=== PATIENT | male | born 1945 | race Caucasian/White ===

== ENCOUNTER 2025-01-29 11:17 | Inpatient (IN) | payer MEDICARE, OTHER ==
[~2025-01-29] VITALS: Ht 172.7 cm; Wt 63.2 kg
[2025-01-29 11:30] VITALS: PULSE 72; RESP 18; O2SAT 98
--- NOTE | 2025-01-29 11:39 | ED.PDOC ---
History of Present Illness HPI Comments 79-year-old male BIBA with prior medical history of OR, hypertension, high lipids, skin cancer, seizures (not on meds): Surgical history of skin cancer surgery in the chief complaint of a seizure. EMS report that the patient had a one episode seizure which lasted 1 minute and was tonic and clonic. Patient was sitting in playing a game in his computer when the seizure occurred. When EMS arrived on scene the patient was sitting on the floor postictal. Patient's stated that the patient's last seizure was years ago. On scene patient blood sugar 140. Social history of tobacco use. Family history of heart disease. Denies any other symptoms at this time. Denies chills, fever, N/V/D, SOB, CP. No other associated symptoms, modifiers, recent injuries or sick contacts present at this time. Chief Complaint: Seizure Time Seen by MD: 11:30 Primary Care Provider: GOODK Reviewed Notes: Nurses Notes, Medications, Allergies Allergies: Coded Allergies: NO KNOWN ALLERGIES (Unverified , 05/14/15) Information Source: Patient, Emergency Med Personnel Mode of Arrival: EMS Severity: Moderate Timing: Minutes Duration: Since onset, Minutes Prehospital treatment: None Past Medical History PAST MEDICAL HISTORY: Cancer (Skin cancer), High Lipids, HTN, OR, Seizures (Currently not taking medications) Surgical History: Denies all surgeries Family History Family History: Reviewed,noncontributory to illness, Unknown Social History Smoker: Non-Smoker Alcohol: Denies ETOH Use Drugs: Denies Drug Use Lives In: Home Constitutional: denies: chills, diaphoresis, fatigue, fever, malaise, sweats, weakness, others EENTM: denies: blurred vision, double vision, ear bleeding, ear discharge, ear drainage, ear pain, ear ringing, eye pain, eye redness, hearing loss, mouth pain, mouth swelling, nasal discharge, nose bleeding, nose congestion, nose pain, photophobia, tearing, throat pain, throat swelling, voice changes, others Respiratory: denies: cough, hemoptysis, orthopnea, SOB at rest, shortness of breath, SOB with excertion, stridor, wheezing, others Cardiovascular: denies: chest pain, dizzy spells, diaphoresis, Dyspnea on exertion, edema, irregular heart beat, left arm pain, lightheadedness, palpitations, PND, syncope, others Gastrointestinal: denies: abdomen distended, abdominal pain, blood streaked bowels, constipated, diarrhea, dysphagia, difficulty swallowing, hematemesis, melena, nausea, poor appetite, poor fluid intake, rectal bleeding, rectal pain, vomiting, others Genitourinary: denies: burning, dysuria, flank pain, frequency, hematuria, incontinence, penile discharge, penile sore, pain, testicle pain, testicle swelling, urgency, others Neurological: reports: seizure; denies: dizziness, fainting, headache, left sided numbness, left sided weakness, numbness, paresthesia, pre-existing deficit, right sided numbness, right sided weakness, speech problems, tingling, tremors, weakness, others Musculoskeletal: denies: back pain, gout, joint pain, joint swelling, muscle pain, muscle stiffness, neck pain, others Integumetry: denies: bruises, change in color, change in hair/nails, dryness, laceration, lesions, lumps, rash, wounds, others Allergic/Immunocompromised: denies: Difficulty Healing, Frequent Infections, Hives, Itching, others Hematologic/Lymphatic: denies: anemia, blood clots, easy bleeding, easy bruising, swollen glands, others Endocrine: denies: excessive hunger, excessive sweating, excessive thirst, excessive urination, flushing, intolerance to cold, intolerance to heat, unexplained weight gain, unexplained weight loss, others Psychiatric: denies: anxiety, bipolar disorder, depression, hopeless, panic disorder, schizophrenia, sleepless, suicidal, others All Other Systems: Reviewed and Negative Physical Exam General Appearance: Moderate Distress HEENT: Normal ENT Inspection, Pharynx Normal, TMs Normal Neck: Full Range of Motion, Non-Tender, Normal, Normal Inspection Respiratory: Chest Non-Tender, Lungs Clear, No Accessory Muscle Use, No Respiratory Distress, Normal Breath Sounds Cardiovascular: No Edema, No JVD, No Murmur, No Gallop, Normal Peripheral Pulses, Regular Rate/Rhythm Breast Exam: Deferred Gastrointestinal: No Organomegaly, Non Tender, No Pulsatile Mass, Normal Bowel Sounds, Soft Genitalia: Deferred Pelvic: Deferred Rectal: Deferred Extremities: No calf tenderness, Normal capillary refill, Normal inspection, Normal range of motion, Non-tender, No pedal edema Musculoskeletal : Apperance: Normal Neurologic: microstrategy architect II-XII nml as Tested, Motor Weakness, Normal Affect, Normal Mood, No Sensory Deficits Cerebellar Function: Normal Reflexes: Normal Skin: Dry, Normal Color, Warm Lymphatic: No Adenopathy Was a procedure done? Was a procedure done?: No Differential Dx Considerations may include: Breakthrough seizure, generalized weakness, electrolyte imbalance X-Ray, Labs, Meds, VS Vital Signs Date Time Temp Pulse Resp B/P (MAP) Pulse Ox O2 Delivery O2 Flow Rate FiO2 01/29/25 11:26 98.1 70 16 146/72 97 98.1 Lab Test 01/29/25 12:56 Range/Units White Blood Count 7.3 4.4-10.8 10^3/uL Red Blood Count 4.20 L 4.5-5.90 10^6/uL Hemoglobin 12.6 L 13.5-17.5 g/dL Hematocrit 37.6 L 41.0-53.0 % Mean Corpuscular Volume 89.6 80.0-100.0 fL Mean Corpuscular Hemoglobin 29.9 28.0-32.0 pg Mean Corpuscular Hemoglobin Concent 33.4 32.0-36.0 g/dL Red Cell Distribution Width 15.2 H 11.8-14.3 % Platelet Count 241 140-450 10^3/uL Mean Platelet Volume 7.6 6.9-10.8 fL Neutrophils (%) (Auto) 78.2 37.0-80.0 % Lymphocytes (%) (Auto) 9.7 L 10.0-50.0 % Monocytes (%) (Auto) 10.0 0.0-12.0 % Eosinophils (%) (Auto) 1.6 0.0-7.0 % Basophils (%) (Auto) 0.5 0.0-2.0 % Neutrophils # (Auto) 5.7 1.6-8.6 10 ^3/uL Lymphocytes # (Auto) 0.7 0.4-5.4 10 ^3/uL Monocytes # (Auto) 0.7 0-1.3 10 ^3/uL Eosinophils # (Auto) 0.1 0-0.8 10 ^3/uL Basophils # (Auto) 0 0-0.2 10 ^3/uL Nucleated Red Blood Cells 0.0 % Sodium Level 138 136-145 mmol/L Potassium Level 4.4 3.5-5.1 mmol/L Chloride Level 106 98-107 mmol/L Carbon Dioxide Level 26 20-31 mmol/L Anion Gap 6 5-15 Blood Urea Nitrogen 16 9-23 mg/dL Creatinine 1.45 H 0.700-1.30 mg/dL Glomerular Filtration Rate Calc 49 >90 mL/min BUN/Creatinine Ratio 11.0 10.0-20.0 Serum Glucose 112 H 74-106 mg/dL Calcium Level 8.4 L 8.7-10.4 mg/dL Current Medications Medications (Trade) Dose Ordered Sig/Dahlia Route Start Time Stop Time Status Last Admin Levetiracetam 100 ml @ 400 mls/hr ONCE ONCE IV 01/29/25 11:30 01/29/25 11:44 DC 01/29/25 11:59 The patient's CBC is within normal limits The chemistry panel shows a bilirubin of 1.45 The patient was given Keppra 1 g IV piggyback The CAT scan of the head shows: IMPRESSION: 1. Area of hypoattenuation of the right parietal lobe and correlate for underlying acute infection. 2. Additional area loss of lopez-white differentiation of the left occipital lobe. At this time we will get a neurology consult The patient is being admitted to the hospitalist. At this time, the patient will be admitted secondary to the fact that he is currently not at his baseline. Images Reviewed?: Images reviewed and evaluated by me Time of 1ST Reevaluation: 12:00 Reevaluation 1ST: Unchanged Patient Education/Counseling: Diagnosis, Treatment, Prognosis Family Education/Counseling: No Family Present SEPSIS Sepsis Screen Date sepsis recognized/suspect: Jan 29, 2025 Time Sepsis recognized/suspect: 1127 Recent Procedure: No On Antibiotic Therapy: No Respiratory Rate >20: No Heart Rate >90: No Temp<36 C (96.8 F) or >38.3 C: No SBP <90 or MAP <65 mmHG: No New Acute Mental Status Change: No Is the patient on CPAP, BIPAP,: No Physician Orders Pulse Oximetry (01/29/25 11:30) Blood Pressure (01/29/25 11:30) Heplock Iv (01/29/25 11:30) Seizure Precautions (01/29/25 11:30) Planisher (01/29/25 11:30) Electrocardigram (01/29/25 11:30) Head Without Contrast (01/29/25 11:30) Vital Signs Date Time Temp Pulse Resp B/P (MAP) Pulse Ox O2 Delivery O2 Flow Rate FiO2 01/29/25 11:26 98.1 70 16 146/72 97 98.1 Laboratory Tests Test 01/29/25 12:56 White Blood Count 7.3 10^3/uL (4.4-10.8) Medications Medications Dose Ordered Sig/Dahlia Route Start Time Stop Time Status Last Admin Dose Admin Levetiracetam 100 ml @ 400 mls/hr ONCE ONCE IV 01/29/25 11:30 01/29/25 11:44 DC 01/29/25 11:59 Departure 1 Departure Time of Disposition: 14:03 Impression: Primary Impression: Breakthrough seizure Disposition: ADMITTED INPATIENT Admit to: Tele Condition: Fair Critical Care Note Critical Care Time?: No Stability Stability form required: Yes Unstable for transfer: Telemetry monitoring (Telemetry monitoring required), ED Physician Assesment (Clinical assesment) Heart Score Heart Score: Heart Score Response (Comments) Value History N/A 0 EKG N/A 0 Age N/A 0 Risk Factors N/A 0 Troponin N/A 0 Total 0 I personally scribed for NATALI DOMINGUEZ MD ([email or web address]) on 01/29/25 at 11:39. Electronically submitted by Robin Michael ([email or web address]). NATALI DOMINGUEZ MD Jan 29, 2025 11:39
[2025-01-29] MEDS: levETIRAcetam 1000 mg/100ml 100 ML IV ONE (11:59)
--- NOTE | 2025-01-29 12:35 | DVH ---
EXAM: CT HEAD WITHOUT CONTRAST INDICATION: seizure TECHNIQUE: CT images of the head were obtained without administration of IV contrast. CT scans at this facility use dose modulation, iterative reconstruction, and/or weight based dosing when appropriate to reduce radiation dose to as low as reasonably achievable. COMPARISON: None FINDINGS: PARENCHYMA: No acute hemorrhage. There is no mass effect, midline shift, or herniation. Area hypoattenuation of the right parietal lobe and correlate for underlying acute infection. Additional area loss of lopez-white differentiation of the left occipital lobe. Mild scattered hypoattenuation along the p eriventricular, centrum semiovale, and deep white matter tracts, which are nonspecific however statistically most likely represent chronic microvascular ischemic change. VENTRICLES: No hydrocephalus. EXTRA-AXIAL SPACES: No extra-axial fluid collections. OTHER: The bony structures are intact. Visualized portions of the paranasal sinuses and mastoid air cells are clear. IMPRESSION: 1. Area of hypoattenuation of the right parietal lobe and correlate for underlying acute infection. 2. Additional area loss of lopez-white differentiation of the left occipital lobe.
[2025-01-29 13:44] LABS: Chloride 106 mmol/L (98-107); Potassium 4.4 mmol/L (3.5-5.1); Sodium 138 mmol/L (136-145)
[2025-01-29 13:45] LABS: Anion Gap 6 (5-15); Carbon Dioxide 26 mmol/L (20-31)
[2025-01-29 13:47] LABS: Hematocrit 37.6 % (41.0-53.0); Hemoglobin 12.6 g/dL (13.5-17.5); Mean Corpuscular Hemoglobin 29.9 pg (28.0-32.0); Mean Corpuscular Volume 89.6 fL (80.0-100.0); Nucleated Red Blood Cells % 0.0 %
[2025-01-29 13:50] LABS: BUN/Creatinine Ratio 11.0 (10.0-20.0); Blood Urea Nitrogen 16 mg/dL (9-23)
[2025-01-29 13:55] LABS: Calcium 8.4 mg/dL (8.7-10.4); Glucose 112 mg/dL (74-106)
[2025-01-29] MEDS ORDERED: ACETAMINOPHEN 325 MG TAB PO PRN (19:45)
[2025-01-29] MEDS ORDERED: ONDANSETRON HCL 4 MG/2 ML VIAL IV PRN (19:45)
[2025-01-29 21:09] VITALS: O2SAT 93
[2025-01-29 21:25] VITALS: BP 114/64; PULSE 57; RESP 18; TEMP 97.7; O2SAT 95
[2025-01-29] MEDS ORDERED: LORazepam 2MG/ML-1ML VIAL IV PRN ×3 (21:45→23:45)
--- NOTE | 2025-01-29 21:47 | DVHHP2 ---
History of Present Illness Reason for Visit: Seizure History of Present Illness 79-year-old male presents for evaluation of seizure evaluation. Patient was in his computer playing games when his noticed patient falling to the ground and began shaking for approximately 1 minute. When EMS arrived patient was found on the floor postictal. Currently he is alert and oriented. Denies headache or blurred vision. There is no unilateral weakness. Denies any cardiac or respiratory symptoms. Past Medical History Dyslipidemia, hypertension, mi, skin cancer Past Surgical History Skin surgery Family History Noncontributory Smoke: No ALCOHOL: none Drugs: None Lives: with Family Review of Systems Review of Systems Review of systems are currently negative otherwise addressed in HPI. Allergies: Coded Allergies: NO KNOWN ALLERGIES (Unverified , 05/14/15) Medications Current Medications Medications Dose Ordered Sig/Dahlia Route Start Time Stop Time Status Last Admin Dose Admin Levetiracetam 500 mg BID PO 01/29/25 22:00 Ondansetron HCl 4 mg Q4HP PRN IV 01/29/25 19:45 Acetaminophen 650 mg Q6HP PRN PO 01/29/25 19:45 Exam Vital Signs Vital Signs Date Time Temp Pulse Resp B/P (MAP) Pulse Ox O2 Delivery O2 Flow Rate FiO2 01/29/25 21:09 93 Nasal Cannula* 2 28 01/29/25 20:00 98.3 66 13 131/53 (79) 98.3 Exam Gen: 79-year-old male in no apparent distress Skin: Warm, dry, normal color and texture, no rash. HEENT: Normocephalic atraumatic, mucous membranes moist and pink. Neck: Cervical and supraclavicular nodes normal without enlargement, trachea is midline, thyroid gland is normal without masses. Pulmonary: Clear to auscultation and percussion bilaterally. Cardiac: Regular rate and rhythm. No murmur Abdomen: Soft, nontender, nondistended, bowel sounds present all 4 quadrants, no guarding, no rigidity, no organomegaly. Extremities: No cyanosis, clubbing, no edema Neuro: Cranial nerves II through XII grossly intact, normal affect and speech, no focal motor deficits. Labs/Xrays ORDERING PHYSICIAN: NATALI DOMINGUEZ MD PROCEDURE(s): HWOCT - HEAD WITHOUT CONTRAST REASON: seizure ORDER NUMBER(s): [id number], ACCESSION NUMBER(s): [id number] EXAM: CT HEAD WITHOUT CONTRAST INDICATION: seizure TECHNIQUE: CT images of the head were obtained without administration of IV contrast. CT scans at this facility use dose modulation, iterative reconstruction, and/or weight based dosing when appropriate to reduce radiation dose to as low as reasonably achievable. COMPARISON: None FINDINGS: PARENCHYMA: No acute hemorrhage. There is no mass effect, midline shift, or herniation. Area hypoattenuation of the right parietal lobe and correlate for underlying acute infection. Additional area loss of lopez-white differentiation of the left occipital lobe. Mild scattered hypoattenuation along the periventricular, centrum semiovale, and deep white matter tracts, which are nonspecific however statistically most likely represent chronic microvascular ischemic change. VENTRICLES: No hydrocephalus. EXTRA-AXIAL SPACES: No extra-axial fluid collections. OTHER: The bony structures are intact. Visualized portions of the paranasal sinuses and mastoid air cells are clear. IMPRESSION: 1. Area of hypoattenuation of the right parietal lobe and correlate for underlying acute infection. 2. Additional area loss of lopez-white differentiation of the left occipital lobe. Labs Test 01/29/25 12:56 Range/Units White Blood Count 7.3 4.4-10.8 10^3/uL Red Blood Count 4.20 L 4.5-5.90 10^6/uL Hemoglobin 12.6 L 13.5-17.5 g/dL Hematocrit 37.6 L 41.0-53.0 % Mean Corpuscular Volume 89.6 80.0-100.0 fL Mean Corpuscular Hemoglobin 29.9 28.0-32.0 pg Mean Corpuscular Hemoglobin Concent 33.4 32.0-36.0 g/dL Red Cell Distribution Width 15.2 H 11.8-14.3 % Platelet Count 241 140-450 10^3/uL Mean Platelet Volume 7.6 6.9-10.8 fL Neutrophils (%) (Auto) 78.2 37.0-80.0 % Lymphocytes (%) (Auto) 9.7 L 10.0-50.0 % Monocytes (%) (Auto) 10.0 0.0-12.0 % Eosinophils (%) (Auto) 1.6 0.0-7.0 % Basophils (%) (Auto) 0.5 0.0-2.0 % Neutrophils # (Auto) 5.7 1.6-8.6 10 ^3/uL Lymphocytes # (Auto) 0.7 0.4-5.4 10 ^3/uL Monocytes # (Auto) 0.7 0-1.3 10 ^3/uL Eosinophils # (Auto) 0.1 0-0.8 10 ^3/uL Basophils # (Auto) 0 0-0.2 10 ^3/uL Nucleated Red Blood Cells 0.0 % Sodium Level 138 136-145 mmol/L Potassium Level 4.4 3.5-5.1 mmol/L Chloride Level 106 98-107 mmol/L Carbon Dioxide Level 26 20-31 mmol/L Anion Gap 6 5-15 Blood Urea Nitrogen 16 9-23 mg/dL Creatinine 1.45 H 0.700-1.30 mg/dL Glomerular Filtration Rate Calc 49 >90 mL/min BUN/Creatinine Ratio 11.0 10.0-20.0 Serum Glucose 112 H 74-106 mg/dL Calcium Level 8.4 L 8.7-10.4 mg/dL SEPSIS Sepsis Screen Date sepsis recognized/suspect: Jan 29, 2025 Time Sepsis recognized/suspect: 1129 Recent Procedure: No On Antibiotic Therapy: No Respiratory Rate >20: No Heart Rate >90: No Temp<36 C (96.8 F) or >38.3 C: No SBP <90 or MAP <65 mmHG: No New Acute Mental Status Change: No Is the patient on CPAP, BIPAP,: No Physician Orders Levetiracetam Tablet (Keppra Tablet) (01/29/25 22:00) Seizure Precautions In Place (01/29/25 19:33) * Neurology Consult (01/29/25 19:33) Basic Metabolic Panel (01/30/25 04:00) Ondansetron Hcl (Zofran) (01/29/25 19:45) Cardiac Diet-2gna,Lofat,Lochol (01/30/25 Breakfast) Condition: Stable (01/29/25 19:33) Acetaminophen Tablet (Tylenol Tablet) (01/29/25 19:45) Bedrest With Bathroom Privileg (01/29/25 19:33) Admit (01/29/25 19:57) Amlodipine Tablet (Norvasc Tablet) (01/30/25 10:00) Aspirin Tablet (01/30/25 10:00) Atorvastatin (Lipitor) (01/29/25 22:00) Lorazepam 2mg/Ml Inj (Ativan Inj) (01/29/25 21:45) Vital Signs Date Time Temp Pulse Resp B/P (MAP) Pulse Ox O2 Delivery O2 Flow Rate FiO2 01/29/25 21:09 93 Nasal Cannula* 2 28 01/29/25 20:00 98.3 66 13 131/53 (79) 94 98.3 01/29/25 17:00 98.1 59 14 137/58 (84) 99 98.1 01/29/25 15:00 76 15 121/63 (82) 97 Laboratory Tests Test 01/29/25 12:56 White Blood Count 7.3 10^3/uL (4.4-10.8) Medications Medications Dose Ordered Sig/Dahlia Route Start Time Stop Time Status Last Admin Dose Admin Levetiracetam 100 ml @ 400 mls/hr ONCE ONCE IV 01/29/25 11:30 01/29/25 11:44 DC 01/29/25 11:59 400 MLS/HR Assessment/Plan Assessment/Plan Assessment Seizure activity, new onset Hypertension Chronic kidney disease Plan Admit the patient to [facility] to the hospitalist Nephrology consultation Start Keppra b.i.d. MRI of the brain pending Seizure precautions in place Resume home medications Continue treatment per orders. Plan discussed with: Patient My Orders Orders - RONNELL FROST AGACNCiro Procedure Category Date Status Time Levetiracetam Tablet PHA 01/29/25 In Process (Keppra Tablet) 22:00 Seizure Precautions RITA 01/29/[address] 19:33 * Neurology Consult CONS 01/29/25 Transmitted 19:33 Basic Metabolic Panel LAB 01/30/25 Verified 04:00 Ondansetron Hcl PHA 01/29/25 In Process (Zofran) 19:45 Cardiac DIET 01/30/25 Transmitted Diet-2gna,Lofat,Lochol Breakfast Condition: Stable RITA 01/29/25 In Process 19:33 Acetaminophen Tablet PHA 01/29/25 In Process (Tylenol Tablet) 19:45 Bedrest With Bathroom RITA 01/29/25 In Process Privileg 19:33 Admit ADMIT 01/29/25 Transmitted 19:57 Amlodipine Tablet PHA 01/30/25 Transmitted (Norvasc Tablet) 10:00 Aspirin Tablet PHA 01/30/25 Transmitted 10:00 Atorvastatin (Lipitor) PHA 01/29/25 Transmitted 22:00 Lorazepam 2mg/Ml Inj PHA 01/29/25 Transmitted (Ativan Inj) 21:45 Date of Service: Jan 29, 2025 Billing Provider: RONNELL FROST Common Visit Codes: [id number] INP/OBS CARE (HIGH) RONNELL FROST Jan 29, 2025 21:47
[2025-01-29] MEDS: levETIRAcetam 500 MG TAB PO SCH (22:03)
[2025-01-29] MEDS: ATORVASTATIN 20 MG TAB PO SCH (22:06)
--- NOTE | 2025-01-29 23:42 | DVHINCON2 ---
Date of service: Jan 29, 2025 Referring Physician Jhon Reason for Consultation Seizure History of Present Illness Mr. Malone is a 79 years old right-handed gentleman with a history of hypertension, dyslipidemia, skin cancer, he was brought to the [facility] on 01/29/25 with a chief complaint of seizure activity. At that time, he is alert and oriented x3, the history is obtained from him and his He remembers sitting and playing video games, but next memory was waking up with and EMS people around him, and told him he had seizure He relates that she heard a noise and found him shaking with blood coming off the mouth, the event was about 1 minute and the patient is confused afterwards. The patient does not remember his relates he had one similar but less intense event 2-3 years ago, the patient was seen in the [facility] but did not remember what was done, and how he was treated. did not remember seizure medication previously He has no symptoms of olfactory/gustatory hallucination He denies a history of traumatic brain injury, intracranial infection, family history seizure disorder The case has been discussed with Jhon Home medication: aspirin, trazodone, carvedilol, Lipitor, losartan, HCTZ, bupropion WBC/HB/PLT/MCV, 01/29/2025: 7.3/12.6/241/89.6 BUN/CR, 01/29/2025: 16/1.45 GFR, 01/29/2025: 49 CT head, 01/29/2025: 1. Area of hypoattenuation of the right parietal lobe and correlate for underlying acute infection. 2. Additional area loss of lopez-white differentiation of the left occipital lobe. Past Medical History Hypertension, dyslipidemia, coronary artery disease, skin cancer, no history of traumatic brain injury, intracranial infection or strokes Past Surgical History Multiple skin cancer resection, CABG Family History: Patient reports no known family medical history. Family History Hypertension, heart attack Social History He smokes, he used to drink alcohol heavily, but no history of drug abuse Allergies: Coded Allergies: NO KNOWN ALLERGIES (Unverified , 05/14/15) Home Meds Unable to Obtain Active Prescriptions or Reported Meds Current Medications Current Medications Medications (Trade) Dose Ordered Sig/Dahlia Route PRN Reason Start Time Stop Time Status Last Admin Levetiracetam (Keppra Tablet) 500 mg BID PO 01/29/25 22:00 01/29/25 22:03 Ondansetron HCl (Zofran) 4 mg Q4HP PRN IV NAUSEA / VOMITING 01/29/25 19:45 Acetaminophen (Tylenol Tablet) 650 mg Q6HP PRN PO PAIN SCALE 1-3 OR TEMP>100.4 01/29/25 19:45 Amlodipine Besylate (Norvasc Tablet) 5 mg DAILY PO 01/30/25 10:00 Aspirin 81 mg DAILY PO 01/30/25 10:00 Atorvastatin Calcium (Lipitor) 10 mg HS PO 01/29/25 22:00 01/29/25 22:06 Lorazepam (Ativan Inj) 1 mg Q5MINP PRN IV SEIZURES 01/29/25 21:45 Review of Systems As above, the other systems are negative Vital Signs Vital Signs Date Time Temp Pulse Resp B/P (MAP) Pulse Ox O2 Delivery O2 Flow Rate FiO2 01/29/25 21:25 97.7 57 18 114/64 (81) 95 97.7 01/29/25 21:09 Nasal Cannula* 2 28 Physical Exam GENERAL EXAM: General: the patient is well developed and nourished. No acute distress. HEENT: Normocephalic, neck is supple, no carotid bruits. No mass. I saw dried blood in the lower lip RESPIRATORY: Normal respiratory effort with symmetrical lung expansion. Lungs clear to auscultation. CARDIOVASCULAR: Regular rate and rhythm with no murmurs. S1, S2. ABDOMEN: Soft, nontender, normal bowel sound NEUROLOGICAL: MENTAL STATUS: Awake and alert. Oriented to person, place, time and general circumstances. Able to give personal history. SPEECH, LANGUAGE, HIGHER CORTICAL FUNCTION: no aphasia or dysathria. CRANIAL NERVES: #2: Intact visual hernandez to confrontation. The optic discs were sharp. #3,4,6: Pupils are equal, round and reactive. EOMs full and conjugate. #5: Facial sensation intact in all three divisions bilaterally. Mandibular strength intact. #7: Facial muscles symmetrical and strength intact. #8: Hearing grossly normal to voice. #9,10: Uvula and soft palate rise in the midline. Swallow and voice are normal. #11: Trapezius and sternomastoid strength intact bilaterally. #12: Tongue midline. No fasciculations or atrophy. SENSATION: Sensation to touch and pinprick is normal. MOTOR: Normal tone in the upper and lower extremity. Normal muscle bulk. No fasciculations. No abnormal movements or posturing. Muscle strength of the major groups in the upper extremities is 5/5. Muscle strength of the major groups in the lower extremities is 5/5. REFLEXES: Deep tendon reflexes are symmetrical. No pathological reflexes. CEREBELLAR/COORDINATION: Finger to nose is normal bilaterally. GAIT/STATION: deferred. Labs/Diagnostic Data Labs Test 01/29/25 12:56 Range/Units White Blood Count 7.3 4.4-10.8 10^3/uL Red Blood Count 4.20 L 4.5-5.90 10^6/uL Hemoglobin 12.6 L 13.5-17.5 g/dL Hematocrit 37.6 L 41.0-53.0 % Mean Corpuscular Volume 89.6 80.0-100.0 fL Mean Corpuscular Hemoglobin 29.9 28.0-32.0 pg Mean Corpuscular Hemoglobin Concent 33.4 32.0-36.0 g/dL Red Cell Distribution Width 15.2 H 11.8-14.3 % Platelet Count 241 140-450 10^3/uL Mean Platelet Volume 7.6 6.9-10.8 fL Neutrophils (%) (Auto) 78.2 37.0-80.0 % Lymphocytes (%) (Auto) 9.7 L 10.0-50.0 % Monocytes (%) (Auto) 10.0 0.0-12.0 % Eosinophils (%) (Auto) 1.6 0.0-7.0 % Basophils (%) (Auto) 0.5 0.0-2.0 % Neutrophils # (Auto) 5.7 1.6-8.6 10 ^3/uL Lymphocytes # (Auto) 0.7 0.4-5.4 10 ^3/uL Monocytes # (Auto) 0.7 0-1.3 10 ^3/uL Eosinophils # (Auto) 0.1 0-0.8 10 ^3/uL Basophils # (Auto) 0 0-0.2 10 ^3/uL Nucleated Red Blood Cells 0.0 % Sodium Level 138 136-145 mmol/L Potassium Level 4.4 3.5-5.1 mmol/L Chloride Level 106 98-107 mmol/L Carbon Dioxide Level 26 20-31 mmol/L Anion Gap 6 5-15 Blood Urea Nitrogen 16 9-23 mg/dL Creatinine 1.45 H 0.700-1.30 mg/dL Glomerular Filtration Rate Calc 49 >90 mL/min BUN/Creatinine Ratio 11.0 10.0-20.0 Serum Glucose 112 H 74-106 mg/dL Calcium Level 8.4 L 8.7-10.4 mg/dL Assessment Seizure/grand mal seizure Abnormal CT scan Chronic stroke Acute/subacute stroke Rule out other pathology Plan/Recommendation Monitoring Supportive treatment Telemetry UDS Lipid profile EEG MR brain scan Echocardiogram Carotid Doppler Aspirin 81 mg daily Lipitor 10 mg daily Keppra 500 mg b.i.d. Ativan for seizure breakthrough [facility] with [facility] on discharge More recommendation per clinical course Prognosis: Poor This medical document was created using an electronic medical record system with [employer] dictation system. Although this document has been carefully reviewed, there may still be some phonetic and typographical errors. These areas are purely typographical due to imperfections of the software programs, and do not reflect any compromise in the patient's medical care. Plan discussed with: Patient, Spouse, Other JANIS DICKENS MD Jan 29, 2025 23:42
[2025-01-30] VITALS (8 sets, daily range): BP systolic 122–154; BP diastolic 64–86; PULSE 60–66; RESP 16–20; TEMP 97.6–98.3; O2SAT 91–98
--- NOTE | 2025-01-30 00:40 | DVH ---
Carotid Duplex Clinical History: cva Comparison: CT HEAD WITHOUT CONTRAST on DOS: 01/29/25 Technique: Duplex Doppler evaluation of the extracranial carotid and vertebral arteries including color Doppler and spectral/pulsed waveform analysis was performed. Findings: RIGHT SIDE: The peak systolic velocities are 48 cm/s in the CCA, 86 cm/s in the ICA. The ICA/CCA ratio is 2.2. The external carotid artery is patent with peak systolic velocity of 498 cm/s proximally. Right vertebral artery not well visualized. LEFT SIDE: The peak systolic velocities are 37 cm/s in the CCA, 76 cm/s in the ICA. The ICA/CCA ratio is 2.1. The external carotid artery is patent with peak systolic velocity of 149 cm/s proximally. There is appropriate antegrade flow in the left vertebral artery. IMPRESSION: Although ICA peak systolic velocities remain within normal limits subjectively there is approximately 50% stenosis within both ICAs. Right vertebral artery not well visualized. Reference: Radiology 2003; 229:340-346 Normal ICA PSV is <125 cm/sec and no plaque or intimal thickening is visible sonographically additional criteria include ICA/CCA PSV ratio <2.0 and ICA EDV <40 cm/sec <50% ICA stenosis ICA PSV is <125 cm/sec and plaque or intimal thickening is visible sonographically additional criteria include ICA/CCA PSV ratio <2.0 and ICA EDV <40 cm/sec 50-69% ICA stenosis ICA PSV is 125-230 cm/sec and plaque is visible sonographically additional criteria include ICA/CCA PSV ratio of 2.0-4.0 and ICA EDV of 40-100 cm/sec 70% ICA stenosis but less than near occlusion ICA PSV is >230 cm/sec and visible plaque and luminal narrowing are seen at lopez-scale and color Doppler ultrasound (the higher the Doppler parameters lie above the threshold of 230 cm/sec, the greater the likelihood of severe disease) additional criteria include ICA/CCA PSV ratio >4 and ICA EDV >100 cm/sec
[2025-01-30 07:22] LABS: Potassium 4.0 mmol/L (3.5-5.1); Sodium 140 mmol/L (136-145)
[2025-01-30 07:23] LABS: Anion Gap 7 (5-15); Carbon Dioxide 24 mmol/L (20-31)
[2025-01-30 07:27] LABS: Calcium 8.6 mg/dL (8.7-10.4); Chloride 109 mmol/L (98-107)
[2025-01-30 07:28] LABS: BUN/Creatinine Ratio 10.5 (10.0-20.0); Blood Urea Nitrogen 14 mg/dL (9-23); Glucose 76 mg/dL (74-106)
--- NOTE | 2025-01-30 10:44 | DVHPN2 ---
Progress Note - Dictate Date Seen: Jan 30, 2025 Medical Necessity Reason Pt with a Central, PICC or Fol: No Subjective Mr. Malone is a 79 years old right-handed gentleman with a history of hypertension, dyslipidemia, skin cancer, he was brought to the [facility] on 01/29/25 with a chief complaint of seizure activity. I have seen and examined the patient, talked to his nurse, he is doing fine, no new complaints, wants to go home [facility] Home medication: aspirin, trazodone, carvedilol, Lipitor, losartan, HCTZ, bupropion WBC/HB/PLT/MCV, 01/29/2025: 7.3/12.6/241/89.6 BUN/CR, 01/29/2025: 16/1.45 GFR, 01/29/2025: 49 Carotid Doppler, 01/30/25: Although ICA peak systolic velocities remain within normal limits subjectively there is approximately 50% stenosis within both ICAs. CT head, 01/29/2025: 1. Area of hypoattenuation of the right parietal lobe and correlate for underlying acute infection. 2. Additional area loss of lopez-white differentiation of the left occipital lobe. vital signs Vital Sign Date Time Temp Pulse Resp B/P (MAP) Pulse Ox O2 Delivery O2 Flow Rate FiO2 01/30/25 10:05 141/69 01/30/25 09:00 97.7 65 16 93 97.7 01/30/25 08:00 Room Air* 0 21 Total Intake and Output 01/29/25 01/29/25 01/30/25 15:00 23:00 07:00 Intake Total 100 ml 0 ml Balance 100 ml 0 ml medications Current Medications Medications Dose Ordered Sig/Dahlia Route Start Time Stop Time Status Last Admin Dose Admin Levetiracetam 500 mg BID PO 01/29/25 22:00 01/30/25 10:04 500 MG Ondansetron HCl 4 mg Q4HP PRN IV 01/29/25 19:45 Acetaminophen 650 mg Q6HP PRN PO 01/29/25 19:45 Amlodipine Besylate 5 mg DAILY PO 01/30/25 10:00 01/30/25 10:05 5 MG Aspirin 81 mg DAILY PO 01/30/25 10:00 01/30/25 10:04 81 MG Atorvastatin Calcium 10 mg HS PO 01/29/25 22:00 01/29/25 22:06 10 MG Lorazepam 1 mg Q5MINP PRN IV 01/29/25 21:45 Lorazepam 1 mg ONCE PRN IV 01/29/25 23:45 Lorazepam 1 mg Q5MINP PRN IV 01/29/25 23:45 objective General: the patient is well developed and nourished. No acute distress. MENTAL STATUS: Awake and alert. Oriented to person, place, time and general circumstances. Able to give personal history. SPEECH, LANGUAGE, HIGHER CORTICAL FUNCTION: no aphasia or dysathria. CRANIAL NERVES: Pupils are equal, round and reactive. EOMs full and conjugate. Facial sensation intact in all three divisions bilaterally. Mandibular strength intact. Facial muscles symmetrical and strength intact. SENSATION: Sensation to touch and pinprick is normal. MOTOR: Normal tone in the upper and lower extremity. Normal muscle bulk. No fasciculations. No abnormal movements or posturing. Muscle strength of the major groups in the extremities is 5/5. REFLEXES: Deep tendon reflexes are symmetrical. No pathological reflexes. CEREBELLAR/COORDINATION: Finger to nose is normal bilaterally. GAIT/STATION: deferred. laboratory and microbiology Laboratory Tests 01/30/25 06:30 01/29/25 12:56 Test 01/30/25 06:30 Range/Units Serum Glucose 76 74-106 mg/dL Problem List Seizure/grand mal seizure Abnormal CT scan Chronic stroke Acute/subacute stroke Rule out other pathology Assessment/Plan Monitoring Supportive treatment Telemetry UDS Lipid profile EEG MR brain scan Echocardiogram Aspirin 81 mg daily Lipitor 10 mg daily Keppra 500 mg b.i.d. Ativan for seizure breakthrough [facility] with [facility] on discharge DMV report in the chart More recommendation per clinical course This medical document was created using an electronic medical record system with [employer] dictation system. Although this document has been carefully reviewed, there may still be some phonetic and typographical errors. These areas are purely typographical due to imperfections of the software programs, and do not reflect any compromise in the patient's medical care. Prognosis poor Plan discussed with: Patient, Other Total Time (mins): 35 JANIS DICKENS MD Jan 30, 2025 10:44
--- NOTE | 2025-01-30 11:15 | DVH ---
EXAMINATION: MRI BRAIN HEAD WO CONTRAST INDICATION: Rule out CVA COMPARISON: CT HEAD WITHOUT CONTRAST on DOS: 01/29/25 TECHNIQUE: Multiplanar, multisequence magnetic resonance imaging of the brain was performed without the use of intravenous contrast. FINDINGS: No evidence of acute or remote infarct. No intracranial hemorrhage. No mass effect. There is periventricular/deep white matter T2/FLAIR hyperintensity is nonspecific, but most commonly associated with chronic microvascular disease. The ventricles and sulci are normal in size for age. Clear basal cisterns. Flow voids in the major intracranial vessels are maintained. No abnormality of the orbits. Paranasal sinuses and mastoid air cells are clear. No abnormality of the visualized osseous structures and extracranial soft tissues. IMPRESSION: No acute infarct, intracranial hemorrhage, mass effect, or hydrocephalus.
--- NOTE | 2025-01-30 12:17 | DVHPN2 ---
Progress Note Date Seen: Jan 30, 2025 Medical Necessity Reason Pt with a Central, PICC or Fol: No Subjective Patient reports: No new complaints (Patient states that he does not recall if he had a the episodes seizure. Currently no headache dizziness nausea vomiting constipation or diarrhea.) Objective vital signs Vital Sign Date Time Temp Pulse Resp B/P (MAP) Pulse Ox O2 Delivery O2 Flow Rate FiO2 01/30/25 10:05 141/69 01/30/25 09:00 97.7 65 16 93 97.7 01/30/25 08:00 Room Air* 0 21 Total Intake and Output 01/29/25 01/29/25 01/30/25 15:00 23:00 07:00 Intake Total 100 ml 0 ml Balance 100 ml 0 ml medications Current Medications Medications Dose Ordered Sig/Dahlia Route Start Time Stop Time Status Last Admin Dose Admin Levetiracetam 500 mg BID PO 01/29/25 22:00 01/30/25 10:04 500 MG Ondansetron HCl 4 mg Q4HP PRN IV 01/29/25 19:45 Acetaminophen 650 mg Q6HP PRN PO 01/29/25 19:45 Amlodipine Besylate 5 mg DAILY PO 01/30/25 10:00 01/30/25 10:05 5 MG Aspirin 81 mg DAILY PO 01/30/25 10:00 01/30/25 10:04 81 MG Atorvastatin Calcium 10 mg HS PO 01/29/25 22:00 01/29/25 22:06 10 MG Lorazepam 1 mg Q5MINP PRN IV 01/29/25 21:45 Lorazepam 1 mg ONCE PRN IV 01/29/25 23:45 Lorazepam 1 mg Q5MINP PRN IV 01/29/25 23:45 Examination: GENERAL:Normal, HEENT:Normal, NECK:Normal, LUNGS:Normal, CVS:Normal, ABDOMEN:Normal, MSK:Normal, SKIN:Abnormal (Bleeding on lips), NEURO:Normal laboratory and microbiology Laboratory Tests 01/30/25 06:30 01/29/25 12:56 Test 01/30/25 06:30 Range/Units Serum Glucose 76 74-106 mg/dL Labs and/or images reviewed: Labs reviewed by me, Image(s) reviewed by me Problem List/Assessment/Plan Problem List/Assessment/Plan Grand mal seizure Chronic stroke Acute subacute stroke Neurology recommendation appreciated Check EEG Check urine drug studies Brain MRI scan done pending results Check echo of the heart Continue aspirin 81 mg daily, Lipitor 10 mg daily Continue Keppra 500 mg b.i.d. Ativan for breakthrough seizure Aspiration precaution Seizure precaution Follow up with the [facility] doctor apparent distress Plan discussed with: Patient Date of Service: Jan 30, 2025 Billing Provider: SHIRA ROBERT MD Common Visit Codes: 42240-HHQ/OBS SAME DATE (HIGH) SHIRA ROBERT MD Jan 30, 2025 12:17
[2025-01-30 13:19] LABS: Potassium 4.2 mmol/L (3.5-5.1); Sodium 140 mmol/L (136-145)
[2025-01-30 13:20] LABS: Anion Gap 10 (5-15); Carbon Dioxide 23 mmol/L (20-31); Chloride 107 mmol/L (98-107)
[2025-01-30 13:21] LABS: Calcium 8.3 mg/dL (8.7-10.4)
[2025-01-30 13:25] LABS: Glucose 84 mg/dL (74-106); Triglycerides 95 mg/dL (< 150)
[2025-01-30 13:27] LABS: Cholesterol 110 mg/dL (< 200); HDL Cholesterol 27 mg/dL (40-59)
[2025-01-30 13:28] LABS: BUN/Creatinine Ratio 14.1 (10.0-20.0); Blood Urea Nitrogen 19 mg/dL (9-23)
[2025-01-30 20:02] LABS: Amphetamine Screen, Urine Neg (NEGATIVE); Barbiturate Scree,Urine Neg (NEGATIVE); Benzodiazephine Screen, Urine Neg (NEGATIVE); Cannabinoid Screen, Urine Neg (NEGATIVE); Cocaine Screen, Urine Neg (NEGATIVE); Opiate Scree,Urine Neg (NEGATIVE); Phencyclidine Screen, Urine Neg (NEGATIVE)
--- NOTE | 2025-01-31 00:01 | DVHEEG2 ---
Neurology EEG Procedural Note Procedural Note EXAM DATE: 01/30/2025 REFERRING DOCTOR: Dr. Dickens TECHNIQUE: Eighteen channels of EEG, 2 channels of EOG, and 1 channel of EKG were recorded using the International 10/20 system. CLINICAL DATA: The patient was referred for an EEG evaluation for the evidence of seizure disorder. MEDICATIONS: See the chart BACKGROUND ACTIVITY: While the patient was awake, the background activity consisted of well regulated 8-9 Hz rhythmic waveforms, symmetrically distributed over both posterior quadrants and was reactive to eye opening. ACTIVATION: Hyperventilation: Not done Photic Stimulation: No photic convulsive response Sleep: Noticed IMPRESSION: This is a normal EEG. No focal, lateralized, or epileptiform features are noted. If clinically indicated to rule out a seizure disorder, recommend repeat EEG with sleep deprivation. The EKG channel showed a regular heart rate of 60 per minute [place] [address]. JANIS DICKENS MD Jan 31, 2025 00:01
[2025-01-31 00:56] VITALS: BP 120/71; PULSE 77; RESP 20; TEMP 97.9; O2SAT 94
[2025-01-31 05:00] VITALS: BP 144/70; PULSE 62; RESP 20; TEMP 98.2; O2SAT 94
[2025-01-31 06:46] LABS: Hematocrit 40.1 % (41.0-53.0); Hemoglobin 13.7 g/dL (13.5-17.5); Mean Corpuscular Hemoglobin 30.6 pg (28.0-32.0); Mean Corpuscular Volume 89.6 fL (80.0-100.0); Nucleated Red Blood Cells % 0.0 %
[2025-01-31 08:00] VITALS: PULSE 63; O2SAT 98
[2025-01-31 08:34] VITALS: BP 146/68; PULSE 63; RESP 16; TEMP 97.4; O2SAT 96
[2025-01-31] MEDS ORDERED: ATOR20TA50 PO (12:38)
[2025-01-31] MEDS ORDERED: ASPI-325 PO (12:38)
[2025-01-31] MEDS ORDERED: KEP500T PO (12:38)
[2025-01-31] MEDS ORDERED: AML5T PO (12:38)
--- NOTE | 2025-01-31 12:40 | DVHDS2 ---
Discharge Summary Date of Admission Jan 29, 2025 at 19:57 Date of Discharge: Jan 31, 2025 Labs/Diagnostic Data: Laboratory Results Test 01/31/25 05:45 01/30/25 19:17 01/30/25 12:46 White Blood Count 5.8 10^3/uL (4.4-10.8) Red Blood Count 4.47 10^6/uL (4.5-5.90) Hemoglobin 13.7 g/dL (13.5-17.5) Hematocrit 40.1 % (41.0-53.0) Mean Corpuscular Volume 89.6 fL (80.0-100.0) Mean Corpuscular Hemoglobin 30.6 pg (28.0-32.0) Mean Corpuscular Hemoglobin Concent 34.1 g/dL (32.0-36.0) Red Cell Distribution Width 14.8 % (11.8-14.3) Platelet Count 239 10^3/uL (140-450) Mean Platelet Volume 7.6 fL (6.9-10.8) Neutrophils (%) (Auto) 64.8 % (37.0-80.0) Lymphocytes (%) (Auto) 17.7 % (10.0-50.0) Monocytes (%) (Auto) 13.2 % (0.0-12.0) Eosinophils (%) (Auto) 3.5 % (0.0-7.0) Basophils (%) (Auto) 0.8 % (0.0-2.0) Neutrophils # (Auto) 3.8 10 ^3/uL (1.6-8.6) Lymphocytes # (Auto) 1.0 10 ^3/uL (0.4-5.4) Monocytes # (Auto) 0.8 10 ^3/uL (0-1.3) Eosinophils # (Auto) 0.2 10 ^3/uL (0-0.8) Basophils # (Auto) 0 10 ^3/uL (0-0.2) Nucleated Red Blood Cells 0.0 % Urine Opiates Screen Neg (NEGATIVE) Urine Fentanyl Screen Neg (NEGATIVE) Urine Barbiturates Screen Neg (NEGATIVE) Urine Phencyclidine Screen Neg (NEGATIVE) Urine Amphetamines Screen Neg (NEGATIVE) Urine Benzodiazepines Screen Neg (NEGATIVE) Urine Cocaine Screen Neg (NEGATIVE) Urine Cannabinoids Screen Neg (NEGATIVE) Sodium Level 140 mmol/L (136-145) Potassium Level 4.2 mmol/L (3.5-5.1) Chloride Level 107 mmol/L (98-107) Carbon Dioxide Level 23 mmol/L (20-31) Anion Gap 10 (5-15) Blood Urea Nitrogen 19 mg/dL (9-23) Creatinine 1.35 mg/dL (0.700-1.30) Glomerular Filtration Rate Calc 54 mL/min (>90) BUN/Creatinine Ratio 14.1 (10.0-20.0) Serum Glucose 84 mg/dL (74-106) Calcium Level 8.3 mg/dL (8.7-10.4) Triglycerides Level 95 mg/dL (< 150) Cholesterol Level 110 mg/dL (< 200) LDL Cholesterol 69 mg/dL (< 100) HDL Cholesterol 27 mg/dL (40-59) Other Laboratory Tests 01/31/25 05:45 01/30/25 12:46 Brief Hx & Hospital Course: 79-year-old male presents for evaluation of seizure evaluation. Patient was in his computer playing games when his noticed patient falling to the ground and began shaking for approximately 1 minute. When EMS arrived patient was found on the floor postictal. Currently he is alert and oriented. Denies headache or blurred vision. There is no unilateral weakness. Denies any cardiac or respiratory symptoms. Patient is admitted for breakthrough seizure. Patient is started on Keppra [address] head shows possible stroke. MRI brain shows no stroke. EEG negative for seizure. Patient is medically stable to be discharged home and follow up with the outpatient [facility] and PCP Condition at Discharge: Stable Final Diagnosis/Problems List Breakthrough seizure Discharge Disposition: Home Discharge Instruct/Medications Diet: Cardiac 2g Na,low cholest Activity: No Restrictions, As Tolerated Follow Up/Referral: Follow up with the [facility] PCP and in view neurology Scheduled Amlodipine Besylate (Norvasc Tablet), 5 MG PO DAILY Aspirin (Aspirin Low Dose), 81 MG PO DAILY Atorvastatin Calcium (Atorvastatin Calcium), 10 MG PO HS Levetiracetam (Keppra Tablet), 500 MG PO BID 55 Discharge Statement: "Patient was advised to return to the ER or call 911 if any headaches, dizziness, shortness of breath, chest pain, abdominal pain, bleeding, fevers, or worsening of medical condition. Patient was counseled about treatment plan, medications, possible side effects, patientverbalized understanding. All questions were answered to the best of my ability. This discharge took greater then 30 minutes in planning, reviewing documentation, counseling the patient, and discussing with other team members." ASSESSMENT ASSESSMENT Assessment Breakthrough seizure Date of Service: Jan 31, 2025 Billing Provider: SHIRA ROBERT MD Common Visit Codes: 91776-ISH/OBS DISCH DAY >30min SHIRA ROBERT MD Jan 31, 2025 12:40
[2025-01-31 12:59] VITALS: BP 149/87; PULSE 66; RESP 16; TEMP 97.6; O2SAT 96
[2025-01-31 13:39] VITALS: BP 146/68; TEMP 36.4
--- NOTE | 2025-02-03 10:30 | DVHSR ---
APPROVED REPORT EXAM: Two-dimensional and M-mode echocardiogram with Doppler and color Doppler. Blood Pressure: 137/86 mmHg INDICATION CVA/TIA: RISK FACTORS Height: 5'8, Weight: 139 DIMENSIONS LVDd 4.9 (3.8-5.7cm) LA (2D) 4.2 (1.9-4.0cm) Aortic Root 2.7 (2.0-3.7cm) LVDs 3.3 (2.5-4.0cm) LA (MM) (1.9-4.0cm) Aortic Cusp Exc 1.8 (1.5-2.0cm) EF (%) 60.0 (55-70%) Rt. Atrium 3.8 (1.9-4.0cm) Asc. Aorta cm IVSd 1.8 (0.7-1.1cm) RV (D) (1.8-2.4cm) PWd 1.0 (0.7-1.1cm) Mitral Valve Mitral Mitral Stenosis E wave 0.90m/s MV Mean GR. mmHg A wave 0.70m/s MV Peak GR. 70mmHg E/A ratio 1.3 2D MVA cm2 DECEL Time 174ms PRESS 1/2 Time ms Aortic Valve Aortic Valve Aortic Stenosis V1 1.10m/s AO Mean GR. mmHg V2 2.79m/s AO Peak GR. 31mmHg LVOT Diameter 1.8 (1.8-2.4cm) Doppler RENEE 1.00cm2 Other Information Technically limited study due to body habitus. Conclusion lvef 55% mild lvh normal rv function normal atria no severe valve abnormalities noted normal pericardium
== END 2025-01-31 14:55 | disposition home or self-care (01) | DRG 101 ==
LOC: EDBD 11:17 → ER 11:22 → WEST WING 19:57 → OVERFLOW 19:57 → WEST WING 21:25 → TELE-WESTW 01-30 03:15
PROVIDERS: ADMIT Internal Medicine; ATTEND Internal Medicine
DX: G40.409 Other generalized epilepsy and epileptic syndromes, not intractable, without status epilepticus (principal); E78.5 Hyperlipidemia, unspecified; I12.9 Hypertensive chronic kidney disease with stage 1 through stage 4 chronic kidney disease, or unspecified chronic kidney disease; N18.9 Chronic kidney disease, unspecified; F17.200 Nicotine dependence, unspecified, uncomplicated; I25.10 Atherosclerotic heart disease of native coronary artery without angina pectoris; I25.2 Old myocardial infarction; Z79.82 Long term (current) use of aspirin; Z79.899 Other long term (current) drug therapy; Z82.49 Family history of ischemic heart disease and other diseases of the circulatory system; Z86.73 Personal history of transient ischemic attack (TIA), and cerebral infarction without residual deficits; Z95.1 Presence of aortocoronary bypass graft; Z85.828 Personal history of other malignant neoplasm of skin
CPT/HCPCS: 36415; 70450; 70551; 80048; 80061; 80307; 85025; 93306; 93886; 95819; 96365; 97110; 97116; 97163; 97530; G0378